=== PATIENT | female | born 1985 | race Two or more races ===

== ENCOUNTER → 2019-11-23 | Outpatient (CLI) | payer MEDICAID | LOC: OD 09:45 | PROVIDERS: ATTEND Obstetrics & Gynecology Gynecology | DX: O36.80X0 Pregnancy with inconclusive fetal viability, not applicable or unspecified (principal) | CPT/HCPCS: 36415; 84702 ==

== ENCOUNTER → 2019-11-25 | Outpatient (CLI) | payer MEDICAID | LOC: OD 09:57 | PROVIDERS: ATTEND Obstetrics & Gynecology Gynecology | DX: O36.80X0 Pregnancy with inconclusive fetal viability, not applicable or unspecified (principal) | CPT/HCPCS: 36415; 84702 ==